=== PATIENT | female | born 1990 ===

== ENCOUNTER 2022-03-12 12:49 | Outpatient (CLI) | payer OTHER ==
[~2022-03-12 12:49] MED LIST: GARAMYCIN5 ML; PRENATAL TABLE1 EAC4
== END 2022-03-12 14:11 | disposition home or self-care (01) ==
LOC: PRENATAL 12:49
PROVIDERS: ATTEND Obstetrics & Gynecology Maternal & Fetal Medicine
DX: O35.0XX0 Maternal care for (suspected) central nervous system malformation in fetus, not applicable or unspecified (principal); O35.3XX0 Maternal care for (suspected) damage to fetus from viral disease in mother, not applicable or unspecified; Z3A.26 26 weeks gestation of pregnancy

== ENCOUNTER 2022-04-27 09:16 | Outpatient (CLI) | payer OTHER | END 2022-04-27 10:25 | disposition home or self-care (01) | LOC: PRENATAL 09:16 | PROVIDERS: ATTEND Obstetrics & Gynecology Maternal & Fetal Medicine | DX: O26.849 Uterine size-date discrepancy, unspecified trimester (principal); O35.0XX0 Maternal care for (suspected) central nervous system malformation in fetus, not applicable or unspecified; Z3A.32 32 weeks gestation of pregnancy ==

== ENCOUNTER 2022-05-25 11:15 | Inpatient (IN) | payer OTHER ==
[~2022-05-25] VITALS: Ht 160 cm; Wt 81.6 kg
[2022-05-25] MEDS ORDERED: PRENATAL CAPLE1 EAC1 PO (11:51)
== END 2022-05-27 13:37 | disposition home or self-care (01) | DRG 807 ==
LOC: OB/GYN 11:15 → LDR 11:15 → OB/GYN 14:10
PROVIDERS: ADMIT Obstetrics & Gynecology; ATTEND Obstetrics & Gynecology
PROC: 10E0XZZ Delivery of Products of Conception, External Approach (ICD-10-PCS; principal; 2022-05-25)
PROC: 4A1HXCZ Monitoring of Products of Conception, Cardiac Rate, External Approach (ICD-10-PCS; 2022-05-25)
DX: O80 Encounter for full-term uncomplicated delivery (principal); Z37.0 Single live birth; Z3A.39 39 weeks gestation of pregnancy; Z20.822 Contact with and (suspected) exposure to COVID-19